=== PATIENT | male | born 1985 | race Caucasian/White ===

== ENCOUNTER 2017-10-02 18:44 | Emergency (ER) | payer SELFPAY ==
[~2017-10-02] VITALS: Wt 64.4 kg
[~2017-10-02 18:44] MED LIST: ANAPROX DS550 MG PO; KEFLEX500 MG PO; ULTRAM50 MG PO; VICODIN 5/500 505 MG PO; VICODIN 500 MG-1 TAB PO; ZOFRAN ODT4 MG SL
[2017-10-02] MEDS ORDERED: PROAIR HFA8.5 GM INH (19:47)
[2017-10-02] MEDS ORDERED: ZOFRAN ODT4 MG SL (19:47)
== END 2017-10-02 19:54 | disposition home or self-care (01) ==
LOC: ED 18:44
DX: B34.9 Viral infection, unspecified (principal); Z88.8 Allergy status to other drugs, medicaments and biological substances